=== PATIENT | male | born 1955 | race African-American/Black ===

== ENCOUNTER 2017-08-05 07:09 | Day surgery (SDC) | payer OTHER ==
[~2017-08-05] VITALS: Ht 188 cm; Wt 99.3 kg
[2017-08-05 07:26] VITALS: BP 132/87; PULSE 69; TEMP 97.3
[2017-08-05 08:19] VITALS: BP 120/84; PULSE 72; TEMP 97.9
[2017-08-05 08:30] VITALS: BP 110/72; PULSE 76
[2017-08-05 08:45] VITALS: BP 121/79; PULSE 67
== END 2017-08-05 09:25 | disposition home or self-care (01) ==
LOC: SDCO 07:09
DX: Z12.11 Encounter for screening for malignant neoplasm of colon (principal); D12.0 Benign neoplasm of cecum; D12.2 Benign neoplasm of ascending colon
CPT/HCPCS: OP; J2250; J3010

== ENCOUNTER 2018-02-14 09:05 | Emergency (ER) | payer OTHER ==
[~2018-02-14] VITALS: Ht 188 cm; Wt 95.5 kg
[~2018-02-14 09:05] MED LIST: NEURONTIN100 MG/CAP PO; ROXICODONE 55 MG/TAB PO; TYLENOL 500MG500 MG PO; ULTRAM 50MG TAB50 MG PO
[2018-02-14 09:10] VITALS: BP 129/80; TEMP 98
[2018-02-14 10:04] LABS: BASO % 0.8 % (0.0-2.0); EOS # 0.1 (0.0-0.7); EOS % 1.5 % (0-4.0); GRAN % 62.3 % (42.2-75.2); HEMATOCRIT 40.5 % (42.0-52.0); HEMOGLOBIN 13.7 g/dl (13.5-18.0); LYMPH # 1.3 (1.2-3.4); LYMPH % 27.1 % (20.0-51.0); MEAN CELL VOLUME 88 fl (80.0-100.0); MEAN CORPUSCULAR HEMOGLOBIN 30 pg (27.0-31.0); MEAN CORPUSCULAR HGB CONC 34 g/dl (33.0-37.0); MONO # 0.4 (0.1-0.6); MONO % 8.1 % (1.7-9.3); PLATELET COUNT 243 K/mm3 (130-400); RED BLOOD COUNT 4.59 M/mm3 (4.20-5.60); REDCELL DISTRIBUTION WIDTH-CV 13.3 % (11.5-14.5)
[2018-02-14 10:16] LABS: ALANINE AMINOTRANSFERASE 26 U/L (21-72); ALBUMIN 4.4 gm/dL (3.5-5.0); ALKALINE PHOSPHATASE 69 U/L (50-136); ANION GAP 8 mmol/L (7-16); AST,SGOT 21 U/L (15-37); BILIRUBIN,TOTAL 0.7 mg/dL (0.0-1.0); BLOOD UREA NITROGEN 9 mg/dL (9-20); CALCIUM 9.3 mg/dL (8.4-10.2); CARBON DIOXIDE 29 mmol/L (22-30); CHLORIDE 106 mmol/L (98-107); CREATININE, serum 1.18 mg/dL (0.66-1.25); GLUCOSE 106 mg/dL (74-106); SODIUM 142 mmol/L (137-145); TOTAL PROTEIN 7.6 gm/dL (6.4-8.2)
[2018-02-14 10:32] LABS: TROPONIN-I < 0.012 ng/mL (0.000-0.034)
[2018-02-14 12:30] VITALS: PULSE 72
== END 2018-02-14 12:30 | disposition home or self-care (01) ==
LOC: COL.ER 09:05
PROVIDERS: Emergency Medicine
DX: R42 Dizziness and giddiness (principal)
CPT/HCPCS: J7030